=== PATIENT | male | born 2000 | race Caucasian/White ===

== ENCOUNTER 2019-07-27 15:02 | Emergency (ER) | payer OTHER ==
[~2019-07-27] VITALS: Ht 175.3 cm; Wt 70.3 kg
[2019-07-27 15:05] VITALS: Ht 175.3 cm; Wt 70.3 kg
[2019-07-27 16:05] VITALS: BP 114/56
== END 2019-07-27 16:05 | disposition home or self-care (01) ==
LOC: ED 15:02
DX: S82.831A Other fracture of upper and lower end of right fibula, initial encounter for closed fracture (principal); X37.1XXA Tornado, initial encounter; Y93.89 Activity, other specified; Y92.89 Other specified places as the place of occurrence of the external cause; Y99.8 Other external cause status
CPT/HCPCS: J1885